=== PATIENT | male | born 1970 | race Caucasian/White ===

== ENCOUNTER 2021-02-15 14:32 | Emergency (ER) | payer MEDICAID ==
[~2021-02-15] VITALS: Ht 177.8 cm; Wt 240.0 kg
[2021-02-15] MEDS ORDERED: acetaminophen 325mg tablet PO ONE (16:45)
[2021-02-15] MEDS ORDERED: terbutaline 1 mg/ml inj SQ STA (16:47)
[2021-02-15] MEDS ORDERED: LIDOcaine 1% 30ml preserv. free vial IJ STA (16:49)
--- NOTE | 2021-02-15 17:20 | NUR ---
ATTEMPTED TO VOID BUT TOO PAINFULA T THIS TIME.WE WILL NOTIFY PROVIDER.
[2021-02-15 17:40] LABS: BASOPHILS # (AUTO) 0.1 X10'3 (0-0.2); BASOPHILS % (AUTO) 0.6 % (0-1); EOSINOPHILS # (AUTO) 0.3 X10'3 (0-0.9); EOSINOPHILS % (AUTO) 3.4 % (0-6); HEMATOCRIT 45.5 % (42.0-52.0); HEMOGLOBIN 15.3 g/dl (14.0-17.9); LYMPHOCYTES # (AUTO) 2.7 X10'3 (1.1-4.8); LYMPHOCYTES % (AUTO) 28.2 % (21-51); MEAN CORPUSCULAR HGB CONC 33.6 g/dL (33.0-36.5); MEAN PLATELET VOLUME 8.5 FL (7.4-10.4); MONOCYTES # (AUTO) 0.7 X10'3 (0-0.9); MONOCYTES % (AUTO) 7.6 % (2-12); NEUTROPHILS # (AUTO) 5.8 X10'3 (1.8-7.7); NEUTROPHILS % (AUTO) 60.2 % (42-75); PLATELET COUNT 270 X10'3 (140-440); RED BLOOD COUNT 4.95 X10'6 (4.70-6.10); RED CELL DISTRIBUTION WIDTH 13.7 % (11.5-14.5); WHITE BLOOD COUNT 9.7 X10'3 (4.5-11.0)
--- NOTE | 2021-02-15 17:53 | NUR ---
per zenaida he will order penile abg,paged RT.
[2021-02-15] MEDS ORDERED: PHENYLEPHRINE IV ONE (18:25)
[2021-02-15] MEDS ORDERED: NORMAL SALINE IV ONE (18:25)
[2021-02-15] MEDS ORDERED: HYDROchlorothiazide 25mg tablet PO ONE (19:25)
[2021-02-15] MEDS ORDERED: lisinopril 10 MG tablet PO ONE (19:25)
[2021-02-15] MEDS ORDERED: metFORMIN 500mg tablet PO ONE (19:25)
[2021-02-15 20:17] VITALS: BP 199/110
--- NOTE | 2021-02-15 20:19 | NUR ---
PT WITH BP 199/110, RUDDY KATZ AT BEDSIDE AND AWARE. RUDDY CURRENTLY INJECTING ADTL RX INTO PENIS AND HE REPORTS THAT THE ERECTION IS IMPROVING.
[2021-02-15] MEDS ORDERED: aspirin 81mg tab.chew PO ONE (20:25)
[2021-02-15 21:53] LABS: URINE AMPHETAMINE SCREEN NEGATIVE (Neg); URINE BARBITUATE SCREEN NEGATIVE (Neg); URINE BENZODIAZEPINES SCREEN NEGATIVE (Neg); URINE CANNABINOID SCREEN POSITIVE (Neg); URINE COCAINE SCREEN NEGATIVE (Neg); URINE METHADONE SCREEN NEGATIVE (Neg); URINE OPIATE SCREEN NEGATIVE (Neg); URINE PHENCYCLIDINE SCREEN NEGATIVE (Neg)
[2021-02-15] MEDS ORDERED: METF500T PO (22:33)
[2021-02-15] MEDS ORDERED: METO-395 PO (22:33)
[2021-02-15] MEDS ORDERED: HYDR25TA5 PO (22:33)
[2021-02-15] MEDS ORDERED: LISI20TA28 PO (22:33)
== END 2021-02-15 22:43 | disposition home or self-care (01) ==
LOC: ER 14:32
DX: N48.30 Priapism, unspecified (principal); Z87.81 Personal history of (healed) traumatic fracture; Z79.899 Other long term (current) drug therapy
CPT/HCPCS: 36415; 54220; 80305; 82948; 85025; 96372; 99285; J3105

== ENCOUNTER 2021-03-08 10:48 | Emergency (ER) | payer MEDICAID ==
[~2021-03-08] VITALS: Ht 177.8 cm; Wt 110.3 kg
[~2021-03-08 10:48] MED LIST: HYDR25TA5 PO; LISI20TA28 PO; METF500T PO; METO-395 PO
[2021-03-08] MEDS ORDERED: terbutaline 1 mg/ml inj SQ STA (12:14)
[2021-03-08] MEDS ORDERED: morphine 4 MG/ML inj SYRINge IV PRN (12:15)
[2021-03-08] MEDS ORDERED: ondansetron/PF 4mg/2ml inj IV ONE (12:15)
[2021-03-08] MEDS ORDERED: LIDOcaine 1% 30ml preserv. free vial SQ STA (12:32)
[2021-03-08] MEDS ORDERED: NORMAL SALINE IV ONE (12:35)
[2021-03-08] MEDS ORDERED: PHENYLEPHRINE IV ONE (12:35)
[2021-03-08 12:38] LABS: BASOPHILS # (AUTO) 0.1 X10'3 (0-0.2); BASOPHILS % (AUTO) 0.7 % (0-1); EOSINOPHILS # (AUTO) 0.3 X10'3 (0-0.9); EOSINOPHILS % (AUTO) 3.2 % (0-6); HEMATOCRIT 44.2 % (42.0-52.0); HEMOGLOBIN 14.7 g/dl (14.0-17.9); LYMPHOCYTES # (AUTO) 2.3 X10'3 (1.1-4.8); LYMPHOCYTES % (AUTO) 23.7 % (21-51); MEAN CORPUSCULAR HEMOGLOBIN 30.7 PG (27.0-31.0); MEAN CORPUSCULAR HGB CONC 33.4 g/dL (33.0-36.5); MONOCYTES # (AUTO) 0.9 X10'3 (0-0.9); MONOCYTES % (AUTO) 9.5 % (2-12); NEUTROPHILS # (AUTO) 6.2 X10'3 (1.8-7.7); NEUTROPHILS % (AUTO) 62.9 % (42-75); PLATELET COUNT 232 X10'3 (140-440); RED BLOOD COUNT 4.81 X10'6 (4.70-6.10); RED CELL DISTRIBUTION WIDTH 13.5 % (11.5-14.5); WHITE BLOOD COUNT 9.9 X10'3 (4.5-11.0)
[2021-03-08 14:55] VITALS: BP 152/105
[2021-03-08] MEDS ORDERED: HYDR-3972 PO (15:13)
[2021-03-08] MEDS ORDERED: HYDROcodone/acetaminophen 10/325mg tab PO ONE (15:15)
[2021-03-08] MEDS ORDERED: METF-436 PO (15:27)
[2021-03-08] MEDS ORDERED: METO-539 PO (15:27)
[2021-03-08] MEDS ORDERED: HYDR25TA4 PO (15:27)
[2021-03-08] MEDS ORDERED: LISI20TA28 PO (15:27)
== END 2021-03-08 15:31 | disposition home or self-care (01) ==
LOC: ER 10:49
DX: N48.30 Priapism, unspecified (principal); F15.10 Other stimulant abuse, uncomplicated; F12.90 Cannabis use, unspecified, uncomplicated; Z79.899 Other long term (current) drug therapy; Z79.84 Long term (current) use of oral hypoglycemic drugs
CPT/HCPCS: 36415; 54220; 82800; 85025; 96372; 96374; 96375; 99284; J2270; J2405; J3105